=== PATIENT | male | born 1935 | race Caucasian/White ===

== ENCOUNTER → 2017-06-07 06:18 | Outpatient (REF) | payer MEDICARE, MEDICAID, SELFPAY ==
[2017-06-07 09:47] LABS: Anion Gap 8 (5-15); BUN 25 mg/dL (7-18); BUN/Creat Ratio 18.9 RATIO (10-20); Calcium,Total 8.7 mg/dL (8.5-10.1); Chloride 100 mmol/L (98-107); Creatinine, Serum 1.32 mg/dL (0.70-1.30); EST Glomerular Filtration Rate 55 mL/min (>60); Est Glom Filt Rate - Afr Amer 67 mL/min (>60); Glucose 83 mg/dL (74-106); Potassium 4.4 mmol/L (3.5-5.1); Sodium Level 138 mmol/L (136-145)
== END ==
LOC: OLS.ACW300 06:18
PROVIDERS: Visit Provider Family Medicine
DX: F03.90 Unspecified dementia, unspecified severity, without behavioral disturbance, psychotic disturbance, mood disturbance, and anxiety (principal); R29.6 Repeated falls; G30.1 Alzheimer's disease with late onset; M62.81 Muscle weakness (generalized); R41.841 Cognitive communication deficit; R48.9 Unspecified symbolic dysfunctions
CPT/HCPCS: 36415; 80048; 82533

== ENCOUNTER → 2017-06-29 05:00 | Outpatient (REF) | payer MEDICARE, MEDICAID, SELFPAY ==
[2017-06-29 08:24] LABS: Valproic Acid (Depakene) Level 21 ug/mL (50-100)
== END ==
LOC: OLS.ACW300 05:00
PROVIDERS: Visit Provider Family Medicine
DX: F03.90 Unspecified dementia, unspecified severity, without behavioral disturbance, psychotic disturbance, mood disturbance, and anxiety (principal); R29.6 Repeated falls; G30.1 Alzheimer's disease with late onset; M62.81 Muscle weakness (generalized); R41.841 Cognitive communication deficit; R48.9 Unspecified symbolic dysfunctions
CPT/HCPCS: 36415; 80164

== ENCOUNTER → 2017-08-31 05:00 | Outpatient (REF) | payer MEDICARE, MEDICAID, SELFPAY ==
[2017-08-31 08:40] LABS: Valproic Acid (Depakene) Level 35 ug/mL (50-100)
== END ==
LOC: OLS.ACW300 05:00
PROVIDERS: Visit Provider Family Medicine
DX: G30.1 Alzheimer's disease with late onset (principal); R29.6 Repeated falls; M62.81 Muscle weakness (generalized); R41.841 Cognitive communication deficit; R48.9 Unspecified symbolic dysfunctions
CPT/HCPCS: 36415; 80164; 82140